=== PATIENT | female | born 1965 | race Two or more races ===

== ENCOUNTER 2025-02-07 14:17 | Observation (INO) | payer BC, SELFPAY ==
--- NOTE | 2025-02-04 10:06 | EKG_ITS ---
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
[2025-02-04 10:19] VITALS: BMI 29.8
[2025-02-04 10:43] LABS: Collection Type, Urine Clean Catch
[2025-02-04 11:31] LABS: Basophils % (Auto) 1 % (0-2.5); Eosinophils # (Auto) 0.3 Thou/mm3 (0.0-0.5); Eosinophils % (Auto) 4 % (0-10); Hematocrit 41.8 % (36.0-46.0); Hemoglobin 13.7 g/dL (12.0-16.0); Immature Granulocytes % (Auto) 0 % (0-0); Immature Granulocytes Auto 0.02 Thou/mm3 (0.00-0.00); Lymphocytes # (Auto) 1.8 Thou/mm3 (1.0-4.8); Lymphocytes % (Auto) 26 % (10-50); Mean Corpuscular HGB Conc 32.8 g/dl (31.0-37.0); Mean Corpuscular Volume 89 fL (80-100); Monocytes # (Auto) 0.3 Thou/mm3 (0.0-0.8); Monocytes % (Auto) 5 % (0-12); Neutrophils # (Auto) 4.4 Thou/mm3 (1.8-7.7); Neutrophils % (Auto) 64 % (37-80); Nucleated Red Blood Cell % 0 /100 WBC (0); Platelet Count 380 Thou/mm3 (140-440); RDW Standard Deviation 43.5 fL (36.4-46.3); Red Blood Count 4.72 Miln/mm3 (4.00-5.20); White Blood Count 6.8 Thou/mm3 (3.6-11.0)
[2025-02-04 11:37] LABS: Bilirubin,Urine Negative (Negative); Blood,Urine 1+ (Negative); Clarity,Urine Clear (Clear/Hazy); Color,Urine Lt-Yellow (Lt Yel-Yel); Glucose, Urine Negative (Negative); Ketones,Urine Negative (Negative); Leukocyte Esterase,Urine Negative (Negative); Nitrite,Urine Negative (Negative); PH,Urine 6.5 (5.0-7.0); Protein,Urine Negative (Neg - Trace); RBC,Urine 8 /hpf (0-3); Specific Gravity,Urine 1.019 (1.001-1.035); Squamous Epithelial Cell,Urine 1 /hpf (0-5); Urobilinogen,Urine Negative mg/dL (0.0-1.0); WBC,Urine 1 /hpf (0-5)
[2025-02-04 11:39] LABS: Partial Thromboplastin Time 28.8 Seconds (22.0-36.0)
[2025-02-04 11:41] LABS: Anion Gap 10 (7-16); BUN/Creatinine Ratio 28 Ratio (12-20); Bilirubin,Total 0.8 mg/dL (0.3-1.2); Blood Urea Nitrogen 14 mg/dL (9-23); Calcium 9.5 mg/dL (8.3-10.6); Carbon Dioxide 30.3 mMol/L (20.0-31.0); Chloride 104 mMol/L (98-107); Creatinine (Component) 0.5 mg/dL (0.6-1.3); Estimated Creatinine Clearance 115.7 mL/min (>60); Glucose 106 mg/dL (74-106); Osmolality,Calculated 287 (275-295); Sodium 144 mMol/L (136-145); eGFR > 60 See Note
[2025-02-04 11:42] LABS: Alanine Aminotransferase 30 U/L (10-49); Albumin, Serum 4.6 gm/dL (3.4-4.8); Albumin/Globulin Ratio 2.1 (1.2-2.2); Alkaline Phosphatase 130 U/L (46-116); Aspartate Amino Transferase 28 U/L (0-34); Calcium (Corrected) 9.5 mg/dL (8.5-10.1); Globulin 2.2 gm/dL (2.3-3.5); Total Protein 6.8 gm/dL (5.7-8.2)
[2025-02-07] VITALS (18 sets, daily range): BP systolic 125–172; BP diastolic 56–87; PULSE 63–88; RESP 12–20; TEMP 36.1–36.7; O2SAT 95–100; BMI 29.5
--- NOTE | 2025-02-07 10:19 | SUR.OPER ---
(Madi) updated on case status/progress via phone by Alexia ARORA at approx. [phone].
--- NOTE | 2025-02-07 11:02 | ESOP_ITS ---
Date of Procedure 02/07/25 Pre Op Diagnosis Large hiatal hernia and significant gastroesophageal reflux not responding to PPI medications Post Op Diagnosis Same. Procedure Laparoscopic hiatal hernia repair with implantation of a phasic ST patch and Ingrid fundoplication on 02/07/2025 Laparoscopic lysis of adhesions 02/07/2025 Findings This patient had a large hiatal hernia measured about 6 cm in length and stomach and fundus resided in the chest that needed to be pulled down. There is significant amount of adhesions because patient had a previous laparotomy and previous open cholecystectomy by subcostal incision that required significant amount of laparoscopic lysis of adhesions in order to access the upper abdomen. Procedure Description Patient was interviewed in the preop holding area and the procedure was discussed in detail. Risk benefits and alternatives were also discussed and informed consent is obtained. The patient was then brought to the operating room by the nursing staff. The patient was positioned in supine position on the operating table. Gen. anesthesia was administered in a satisfactory manner. The patient was positioned in the modified lithotomy position in the [facility]. Patient was given prophylactic IV antibiotics half an hour before the procedure started. The Flowtron's are applied to both legs is anti-embolism mechanism. The chest abdomen and genitalia and the legs are prepped and draped in usual manner. An open laparoscopic procedure is carried out and balloon cannula is inserted through the supraumbilical incision. There were significant amount of dense adhesions adhesions to the peritoneal side of the linea alba and lysis of adhesions was required to insert the balloon cannula. After that the pneumoperitoneum is achieved. The patient is positioned in the reverse Trendelenburg position. The 30? scope is used. After that I had to inserted the 210 mm cannulas on the left side of the abdomen and then significant lysis of adhesions needed to be done because the bowel and the omentum was adherent to the upper abdomen due to previous open cholecystectomy. This added significant amount of effort and time to the procedure. After the right upper quadrant was cleared I was able to insert a 5 mm cannula in the subxiphoid location, 10 mm cannula is inserted in the left midclavicular location, a 10 mm cannula is inserted in the left anterior axillary line and a 5 mm cannula is inserted in the right midclavicular line. A medium Shabana retractor is used through the subxiphoid incision to retract the left lobe of the liver to the right side. The harmonic ultrasonic della are used to divide the gastrohepatic omentum. The dissection is carried out towards the diaphragmatic hiatus and the esophago- phrenic gastrophrenic and gastrosplenic ligaments are divided with the harmonic ultrasonic della. A retroesophageal window is created protecting the posterior vagus nerve and an umbilical tape is passed around the esophagus to be used as a retractor. Further dissection is carried out in the posterior mediastinum and the esophagus is further freed from the mediastinal structures and the esophagus is pulled down into the abdomen. The greater curvature of the stomach is examined and the short gastric vessels on the greater curvature were divided with harmonic ultrasonic della. The gastrosplenic ligaments are divided in a similar manner and the gastropancreatic ligaments are divided. After the greater curvature and the fundus is freed completely the examination is carried out in the retroesophageal space and small ligaments are divided. The hemostasis is already achieved. The hiatal hernia defect is examined carefully and it is repaired by intra and extracorporeal technique with a 3-0 Ethibond interrupted sutures. The diaphragmatic repair is carried out posterior to the esophagus. Enough space his left around the esophagus to avoid obstruction. At this point phasic's ST bioabsorbable patch was used and tailored in place and placed in an onlay manner over the diaphragmatic repair and sutured in place. Multiple sutures were taken on both the side of the esophagus between the diaphragm and the patch and also patch was sutured over the diaphragmatic repair. Now the Ingrid 360? fundoplication is carried out. The orogastric tube is deandra kunal and a 56 Hungarian Walters dilator is inserted into the esophagus and stomach by the anesthesiologist. This is used as an internal stent for calibration of the lumen. Now the freed fundus is brought around the esophagus from the left side behind the esophagus to the front on the right side and it is sutured to the left side of the fundus by intracorporeal and extracorporeal techniques using a 3-0 Ethibond interrupted sutures. There are 3 sutures placed to complete the fundoplication. The sutures passed through right and left side of the fundus as well as anterior wall of the esophagus. The Walters dilator is removed. Multiple Lembert stitchs are taken between the right and left side of the fundus to the esophagus. The operative field is thoroughly irrigated with saline solution and the hemostasis is achieved. The umbilical tape is divided and it is removed. The Interceed an anti-adhesion barrier is placed between the liver and the stomach. The Shabana retractor is removed under direct vision. All the cannulas are removed under laparoscopic vision and there is no bleeding from the cannula site incisions. The balloon cannula is removed and the pneumoperitoneum is allowed to escape. The midline incision is closed in layers. The fascia is approximated by 2-0 Vicryl continuous sutures. The subcutaneous tissue is approximated by 3-0 chromic suture and the skin is approximated by 4-0 nylon interrupted sutures. The trocar site incisions are closed with the 3-0 chromic and a 4-0 nylon stitches. Steri-Strips were applied. Sterile dressings are applied. The patient tolerated the procedure very well and is transferred to the recovery room in satisfactory condition. Anesthesia GETA Drains None. Implants Phasic ST 4 x 6 patch. Implanted on the diaphragmatic repair Pathology / specimen None Estimated Blood Loss 5 Condition Stable Disposition PACU Surgeon Daniel Choi MD Surgical Staff Operation Date: 02/07/25 07:30 Case Staff Anesthesiologist: Killian Sarah RN First Assistant: Chaya Smith Black surgical aides teacher Scott Payne RN nuclear medicine pet ct technologist
--- NOTE | 2025-02-07 11:09 | SUR.PHASEI ---
1103 Patient arrived to recovery resting comfortably in bed, sleeping able to arouse with verbal prompting then drifts back to sleep, on oxygen 10L via oxy mask, breathing unlabored, vital signs stable, denies pain, dressing intact to abdomen; dissolvable sutures, steri-strips, gauze, medipore tape, no bleeding noted, 16F tucker in place, gave order to discontinue Tucker while patient is in recovery, will discontinue per order prior to patient discharging from recovery, report received from Scott ARORA and Dr. Sarah
[2025-02-07] MEDS: fentaNYL CIT INJ 50 mCg/ML AMP 2ML 25 MCG IVP ×2 (12:01→12:11)
--- NOTE | 2025-02-07 12:08 | SUR.PHASEII ---
1208 Patients at bedside with patient
[2025-02-07] MEDS: RINGERS LACTATED 1000 ML 1,000 ML 125 ML IV ×2 (12:16→20:08)
--- NOTE | 2025-02-07 12:27 | SUR.PHASEII ---
pt awake, alert, able to follow commands, breathing unlabored, dressing to abdomen clean, dry, and intact, VS stable, report from Tonya Rebollar RN
--- NOTE | 2025-02-07 13:02 | SUR.PHASEII ---
Report to Tonya Rebollar RN
--- NOTE | 2025-02-07 14:05 | SUR.PHASEII ---
1405 tucker catheter discontinued per MD order, patient tolerated well
--- NOTE | 2025-02-07 14:14 | SUR.PHASEII ---
1402 Report given to Evelyn ARORA, patient meets discharge criteria from recovery, awake and talking with staff, breathing unlabored, vital signs stable, denies pain, dressing intact; no bleeding noted, drinking fluids; denies nausea 1414 Patient transported via bed to room 374 without incident, patient resting comfortably in bed with call light in reach when this marketing writer left patients room
[2025-02-07] MEDS: HYDROmorphone INJ 2 MG/ML VIAL 1 MG IVP (14:46)
[2025-02-07] MEDS: ACETAMINOPHEN IVPB 1,000 MG/100 ML VIAL 250 MG IV ×2 (16:58→22:15)
[2025-02-07] MEDS: GABAPENTIN 100 MG CAPSULE 200 MG PO (21:18)
[2025-02-08] VITALS (9 sets, daily range): BP systolic 144–173; BP diastolic 74–94; PULSE 82–102; RESP 16–21; TEMP 36.1–37.2; O2SAT 92–99
[2025-02-08] MEDS: RINGERS LACTATED 1000 ML 1,000 ML 125 ML IV ×3 (04:48→20:57)
[2025-02-08] MEDS: ACETAMINOPHEN IVPB 1,000 MG/100 ML VIAL 250 MG IV ×2 (04:53→11:21)
--- NOTE | 2025-02-08 08:03 | ESPR_ITS ---
Documentation for date of: 02/08/25 Subjective Subjective Brief History: Postop day 1 on 02/13/2025. Patient had lateral hernia repair with plantation of a patch and Ingrid fundoplication. Postoperatively she required narcotic pain control. The Barker catheter was removed. Started on clear liquid diet she tolerated that without any dysphagia. There is no abdominal pain. She needs to get out of the bed and ambulate more and if she ambulates in the self ind ependent she can be discharged home today. Currently she is in the bed says that she feels hot in her face. She is not walking much but she is going to the bathroom. Patient is encouraged to walk more. She is tolerating full liquid diet well without dysphagia. That she can tell that she does not have any acid reflux. Exam Vital Signs Temp Pulse Resp BP Pulse Ox O2 Del Method O2 Flow Rate 97.4 F 82 19 172/94 H 99 Room Air 2 02/08/25 04:00 02/08/25 06:50 02/08/25 06:50 02/08/25 04:00 02/08/25 06:50 02/08/25 04:00 02/07/25 16:30 Narrative Exam Cardiopulmonary examination is normal abdomen is soft and nontender nondistended bowel tones are hypoactive extremities are unremarkable. Assessment & Plan Diagnosis (1) Hernia, hiatal: Status: Acute (2) Hiatal hernia with gastroesophageal reflux: Status: Acute Plan Encourage patient to ambulate more in the hallways once the patient is self independent. She may be discharged home. Continue with the IV narcotics for pain management. Procedures Procedure Date 02/07/25 Procedures Laparoscopic hiatal hernia repair with implantation of a phasic ST patch and Ingrid fundoplication on 02/07/2025 Laparoscopic lysis of adhesions 02/07/2025
--- NOTE | 2025-02-08 08:15 | PC.NURSE ---
Received call from Dr Choi for update on pt. will advance CLD to Full Liquid and wants patient out of bed.
[2025-02-08] MEDS: GABAPENTIN 100 MG CAPSULE 200 MG PO ×2 (08:31→20:47)
[2025-02-08] MEDS: LOSARTAN POTASSIUM 25 MG TABLET 50 MG PO (08:32)
[2025-02-08] MEDS: HYDROmorphone INJ 2 MG/ML VIAL 1 MG IVP ×2 (10:21→17:49)
--- NOTE | 2025-02-08 13:41 | PC.SS ---
Patient is alert/oriented. Patient was able to verify demographics. Patient was admitted for lap hiatal. Patient is independent with ADLs. She verbalized her daughter, Sherley Zuniga as her alt medical decision maker. D/c plan is to return home with family, where she resides with her spouse and son. [place] [place] Pharmacy: [facility]. PCP: Annita Paige. Family to provide transportation.
[2025-02-08] MEDS: ONDANSETRON INJ 2 MG/ML INJ 2 ML 4 MG IVP ×2 (15:03→20:53)
--- NOTE | 2025-02-08 18:30 | PC.NURSE ---
Dr Choi in to see pt. Expecting discharge tomorrow. Encourage pt to aambulate more.
[2025-02-09] VITALS: BP 165/82; PULSE 109; RESP 18; TEMP 37.2; O2SAT 92
[2025-02-09 04:00] VITALS: BP 163/77; PULSE 108; RESP 17; TEMP 37; O2SAT 96
[2025-02-09] MEDS: HYDROmorphone INJ 2 MG/ML VIAL 1 MG IVP (04:14)
[2025-02-09] MEDS: RINGERS LACTATED 1000 ML 1,000 ML 125 ML IV ×2 (04:15→13:05)
[2025-02-09 08:00] VITALS: BP 114/65; PULSE 78; RESP 16; TEMP 37.1; O2SAT 94
[2025-02-09 08:01] VITALS: BP 114/65; PULSE 94
[2025-02-09] MEDS: GABAPENTIN 100 MG CAPSULE 200 MG PO (08:01)
[2025-02-09] MEDS: LOSARTAN POTASSIUM 25 MG TABLET 50 MG PO (08:01)
[2025-02-09 09:24] VITALS: PULSE 108; RESP 20; O2SAT 93
[2025-02-09 12:00] VITALS: BP 153/73; PULSE 100; RESP 16; TEMP 36.8; O2SAT 94
--- NOTE | 2025-02-09 13:26 | ESPR_ITS ---
Documentation for date of: 02/09/25 Subjective Subjective Brief History: Postop day 1 on 02/13/2025. Patient had hiatal hernia repair with implantation of a patch and Ingrid fundoplication. Postoperatively she required narcotic pain control. The Barker catheter was removed. Started on clear liquid diet she tolerated that without any dysphagia. There is no abdominal pain. She needs to get out of the bed and ambulate more and if she ambulates in the self in dependent she can be discharged home today. Currently she is in the bed says that she feels hot in her face. She is not walking much but she is going to the bathroom. Patient is encouraged to walk more. She is tolerating full liquid diet well without dysphagia. That she can tell that she does not have any acid reflux. Postop day # 2 this patient had hiatal hernia repair with implantation of a patch and Ingrid fundoplication she is able to ambulate at this time and able to take in full liquid diet she is quite happy she has no acid reflux she has minimal amount of complaint and she has improved significantly. She does not require IV narcotics anymore and therefore she is being discharged home today. To be followed in Dr. Choi's office within 7 days. She needs to stay on liquid diet for another 7 to 10 days. Her condition is markedly improved. Exam Vital Signs Temp Pulse Resp BP Pulse Ox O2 Del Method O2 Flow Rate 98.7 F 108 H 20 114/65 93 L Room Air 2 02/09/25 08:00 02/09/25 09:24 02/09/25 09:24 02/09/25 08:01 02/09/25 09:24 02/09/25 08:00 02/07/25 16:30 Narrative Exam Patient is awake abdomen is soft and nontender incisions are healing normally bowel tones are present cardiopulmonary examination is normal extremities are unremarkable. Assessment & Plan Diagnosis (1) Hiatal hernia with gastroesophageal reflux: Status: Acute (2) Hernia, hiatal: Status: Acute Plan Discharge patient home follow-up in the office in 7 to 10 days stay on a liquid diet. Not to lift anything heavier than 10 pounds for 4 months. Procedures Procedure Date 02/07/25 Procedures Laparoscopic hiatal hernia repair with implantation of a phasic ST patch and Ingrid fundoplication on 02/07/2025 Laparoscopic lysis of adhesions 02/07/2025
--- NOTE | 2025-02-09 13:26 | PD.SURDS ---
Planned Discharge Date 02/09/25 DS: Providers Provider Date of admission: 02/07/25 14:17 Primary care physician: Melvin Crain Admitting Provider: Daniel Choi MD Attending Provider on Admission: Daniel Choi MD Attending Provider on DC: Daniel Choi MD Discharging Provider: Daniel Choi MD Diagnosis Discharge Diagnosis (1) Hiatal hernia with gastroesophageal reflux: Status: Acute (2) Hernia, hiatal: Status: Acute (3) Post-op pain: Status: Acute (4) Status post Ingrid fundoplication: Status: Acute Problem List Completed Was Problem List Reviewed/Reconciled?: Yes Hospital Course This patient was admitted to the hospital after laparoscopic hiatal hernia repair and Ingrid fundoplication. The patient required IV narcotics. On postop day 1 the Barker catheter was removed the patient was started on clear liquid diet she tolerated that well she was assisted in ambulation she is slowly started ambulating on postop day 2 she was tolerating full liquid diet well and not requiring IV narcotics for pain management as she was discharged home on oral pain medication to be followed in Dr. Choi's office within 1 week she needs to stay on liquid diet for 7 to 10 days. Condition markedly improved. Exam Vital Signs Temp Pulse Resp BP Pulse Ox O2 Del Method O2 Flow Rate 98.7 F 108 H 20 114/65 93 L Room Air 2 02/09/25 08:00 02/09/25 09:24 02/09/25 09:24 02/09/25 08:01 02/09/25 09:24 02/09/25 08:00 02/07/25 16:30 Narrative Exam Abdomen is soft and nontender nondistended laparoscopic incisions are healing normally. Cardiopulmonary examination is normal and extremities are unremarkable. Discharge Plan Plan Patient Disposition: HOME (Self Care) Disposition Comment: follow up in office in 10 days Prescriptions/Referrals Prescriptions/Med Rec: New hydrocodone-acetaminophen 10-325 mg tablet 1 tab PO Q6H MDD 4 PRN (Reason: pain) Qty: 20 0RF Continued tramadol 50 mg tablet 50 mg PO Q8H losartan 50 mg Tablet 50 mg PO QDAY ciprofloxacin HCl 500 mg tablet 500 mg PO Q12H Patient Comments: TAKE 1 TABLET ORALLY 2 TIMES A DAY DX: N39.0 acetaminophen 500 mg tablet 750 mg PO Q6H PRN (Reason: pain) Discontinued omeprazole 20 mg capsule,delayed release(DR/EC) 20 mg PO QDAY Referrals: Melvin Crain [Primary Care Provider] - Patient/Caregiver Discharge Instructions Other Discharge Activity Instructions:: Not to lift any thing heavier than 10 lbs for 3 months. May take shower in 48 hrs and keep incisions dry. Other Discharge Diet Instructions: Full liquid diet for 10 days Education Materials: Hiatal Hernia Repair, ED Hiatal Hernia Print Language: Barbadian Stand Alone Forms: [place] Award Info., Patient Portal Info Letter, Work/Release Restrictions Discharge Order Discharge Orders: Discharge (Routine); Ordered 02/09/25 Ordered By: Daniel Choi Procedures Procedure Date 02/07/25 Procedures Laparoscopic hiatal hernia repair with implantation of a phasic ST patch and Ingrid fundoplication on 02/07/2025 Laparoscopic lysis of adhesions 02/07/2025
== END 2025-02-09 15:47 | disposition home or self-care (01) ==
LOC: S3SX 02-08 07:30
PROVIDERS: Admitting Provider Specialist; PCP Physician Assistant; Referring Provider Specialist; Visit Provider Specialist
PROC: 0DV44ZZ Restriction of Esophagogastric Junction, Percutaneous Endoscopic Approach (ICD-10-PCS; CPT 43280; principal; 2025-02-07 07:30)
DX: K44.9 Diaphragmatic hernia without obstruction or gangrene (principal); K21.9 Gastro-esophageal reflux disease without esophagitis; G89.18 Other acute postprocedural pain; Z01.810 Encounter for preprocedural cardiovascular examination
CPT/HCPCS: 43282; 36415; 80053; 81001; 85025; 85730; 93005; 94664; 96361; 96365; 96366; 96375; A4217; A4649; C1765; C1781; G0378; J0131; J0461; J0694; J1171; J2250; J2371; J2405; J2704; J2765; J3010; J3490; J7120; A9270